=== PATIENT | male | born 1965 | race Native Hawaiian/Other Pacific Islander ===

== ENCOUNTER 2020-11-17 08:51 | Outpatient (CLI) | payer OTHER | END 2020-11-17 22:44 | disposition home or self-care (01) | LOC: MRI 08:51 | PROVIDERS: ATTEND Neurological Surgery | DX: Q76.0 Spina bifida occulta (principal); G95.89 Other specified diseases of spinal cord | CPT/HCPCS: 36415; 82565; 84520; A9576 ==

== ENCOUNTER 2021-01-23 15:33 | Outpatient (CLI) | payer OTHER | END 2021-01-23 21:47 | disposition home or self-care (01) | LOC: RAD 15:33 | PROVIDERS: ATTEND Neurological Surgery | DX: M54.12 Radiculopathy, cervical region (principal) ==

== ENCOUNTER 2023-02-04 15:07 | Outpatient (CLI) | payer OTHER | END 2023-02-04 19:28 | disposition home or self-care (01) | LOC: RAD 15:07 | PROVIDERS: ATTEND Physician Assistant | DX: M54.59 Other low back pain (principal) ==